=== PATIENT | male | born 1935 | race Caucasian/White ===

== ENCOUNTER 2019-07-11 10:05 | Outpatient (CLI) | payer MEDICARE ==
--- NOTE | 2019-07-11 10:57 | RAD ---
EXAM: Two views chest PROVIDED CLINICAL HISTORY: TB exposure COMPARISON: 12/14/2010 FINDINGS: Cardiac and mediastinal silhouette appears within normal limits. Lungs appear free of significant opa city. No pleural fluid or pneumothorax apparent. IMPRESSION: No evidence for an acute cardiopulmonary process.
== END 2019-07-11 10:06 | disposition home or self-care (01) ==
LOC: BICRAD 10:05
DX: Z20.1 Contact with and (suspected) exposure to tuberculosis (principal)
CPT/HCPCS: 71046